=== PATIENT | female | born 1960 | race Caucasian/White ===

== ENCOUNTER 2020-10-18 11:27 | Emergency (ER) | payer OTHER, MEDICAID, SELFPAY ==
[2020-10-18] VITALS (12 sets, daily range): BP systolic 154–189; BP diastolic 72–115; PULSE 83–100; RESP 10–24; TEMP 36.5; O2SAT 94–99
--- NOTE | 2020-10-18 11:33 | DI.RAD.S_ITS ---
PROCEDURE: XR CHEST 1V INDICATIONS: chest pain TECHNIQUE: One view of the chest was acquired. COMPARISON: None. FINDINGS: Surgical changes and devices: None. Lungs and pleura: Lungs are clear. No pleural effusions or pneumothorax. Mediastinum: Mediastinal contours appear normal. Heart size is normal. Bones and chest wall: No suspicious bony lesions. Overlying soft tissues appear unremarkable. IMPRESSION: No acute cardiopulmonary pathology. Dictated by: Pete Partida M.D. on 10/18/2020 at 11:51 Approved by: Pete Partida M.D. on 10/18/2020 at 11:51
[2020-10-18 12:10] LABS: COVID19 -Nasal RAPID Negative (Negative)
--- NOTE | 2020-10-18 12:14 | ED.WEAKNESS ---
HPI - Weakness <Emanuel Morrow PA-C - Last Filed: 10/18/20 16:54> General Chief complaint: Weakness Stated complaint: generalized weakness x 3 months, no new sx Time Seen by Provider: 10/18/20 12:08 Source: patient Mode of arrival: Ambulatory Limitations: no limitations History of Present Illness HPI Narrative: Mariana presents today with chief complaint of weakness that has been going on for about 3 months. She reports occasionally that she has neck swelling but denies any swelling at this time. She is currently being evaluated for sleep apnea through her primary care provider. She reports that yesterday evening she had an episode of palpitations, left neck pain and left upper arm tingling that lasted for few minutes and then went away. She denies any significant chest pain, shortness of breath, exertional symptoms, fever, cough, sore throat or any other acute concerns or complaints at this time. She has not taken her antihypertensives yet today. Related Data Home Medications Medication Instructions Recorded Confirmed ASCORBIC ACID (#VITAMIN C) 500 mg PO QDAY #0 10/26/10 CALCIUM CARBONATE (#CALCIUM) 600 mg PO QDAY #0 10/26/10 CHOLECALCIFEROL (VITAMIN D) 2,000 iu PO QDAY #0 10/26/10 Fish Oil 1,000 mg PO QDAY #0 10/26/10 LACTOBACILLUS ACIDOPHILUS 1 cap PO QDAY #0 10/26/10 (#ACIDOPHILUS) MULTIVITAMIN (#MULTIPLE VITAMINS) 1 cap PO QDAY #0 10/26/10 diazepam 5 mg tablet 10 mg PO PRN #0 10/26/10 [5hTP] #0 02/08/16 [L/theanine] #0 02/08/16 levothyroxine 150 mcg tablet 1 tab PO QDAY #0 02/08/16 mupirocin 2 % topical ointment #0 02/08/16 Previous Rx's Medication Instructions Recorded clindamycin phosphate 1 % topical 1 % TOPICAL BID #30 gm 04/11/16 gel omeprazole 20 mg tablet,delayed 20 mg PO QDAY #30 tab 06/13/16 release hydrochlorothiazide 25 mg tablet 25 mg PO QDAY #90 tab 08/06/16 losartan 50 mg tablet (Cozaar) 1 tab PO QDAY #30 tab 09/04/16 Allergies Allergy/AdvReac Type Severity Reaction Status Date / Time Sulfa (Sulfonamide Allergy Unknown Verified 10/18/20 11:33 Antibiotics) [SULFA (SULFONAMIDE ANTIBIOTICS)] Review of Systems <Emanuel Morrow PA-C - Last Filed: 10/18/20 16:54> Review of Systems Narrative: As per HPI Patient History <Emanuel Morrow PA-C - Last Filed: 10/18/20 16:54> Surgical History (Updated 07/01/17 @ 05:56 by Conversion Provider) Status post delivery Status post delivery Status post parathyroidectomy Family History (Updated 05/13/16 @ 00:00 by Conversion Provider) Father Age: 85 Heart disease Hypertension Mother Diabetes mellitus Mental health disorder Sister Age: 72 Mental health disorder Skin cancer Sister Age: 68 Obesity Hypertension Hyperlipidemia Mental health disorder Stroke Social History Smoking Status: Former smoker Smoking Status: Former smoker alcohol intake frequency: 0-2 drinks per day Substance Use Type: does not use Exam <Emanuel Morrow PA-C - Last Filed: 10/18/20 16:54> Narrative Exam Narrative: Const General: cooperative, healthy appearing, comfortable and no acute distress Nutritional Appearance: Elevated BMI and well nourished Orientation: alert and oriented x3 HENMT Head: normal to inspection and normocephalic Ears: hearing grossly normal bilaterally, external ears normal, TM's normal bilaterally, EAC's normal, mastoids normal and no periauricular adenopathy Nose: external nose normal, nares normal and no nasal discharge Face and sinus: normal facial exam, sinuses nontender and face symmetric Mouth: oral mucosae normal, lip normal, tongue normal and moist mucous membranes Teeth and gingiva: dentition normal and gingiva normal Throat: posterior oropharynx normal, uvula midline, no postnasal drainage and no uvular edema Eyes periorbital findings normal, eyelids normal, conjunctivae normal Neck: normal visual inspection, full ROM, no lymphadenopathy, no meningeal signs and supple Resp normal respiratory effort, able to speak in complete sentences, not labored and no respiratory distress, clear to auscultation bilaterally, no crackles, no rales and no wheezes Cardio regular rate regular rhythm Heart Sounds: no gallops, no murmurs and no rubs Extrem normal to inspection, no pedal edema and no calf tenderness Neuro Alert and Oriented x3, normal gait, moves all extremities. Initial Vital Signs Initial Vital Signs: Vital Signs Pulse Rate 94 H 08/18/21 11:25 Respiratory Rate 22 10/18/20 11:25 Blood Pressure 174/96 H 10/18/20 11:25 Pulse Oximetry 97 10/18/20 11:25 <Hay Sharma DO - Last Filed: 10/18/20 17:31> Initial Vital Signs Initial Vital Signs: Vital Signs Pulse Rate 94 H 10/18/20 11:25 Respiratory Rate 22 10/18/20 11:25 Blood Pressure 174/96 H 10/18/20 11:25 Pulse Oximetry 97 10/18/20 11:25 Course <Emanuel Morrow PA-C - Last Filed: 10/18/20 16:54> Orders Ordered: ED Orders 10/18/20 11:33 XR chest 1V Stat EKG-12 Lead Stat 10/18/20 11:36 COVID19 -Nasal swab/Pre-Proc Stat 10/18/20 12:25 Complete Blood Count AUTO DIFF Stat Comprehensive Metabolic Panel Stat Lipase Stat Magnesium Stat Thyroid Stimulating Hormone Stat Troponin & CK Cardiac Panel Stat Discontinued Medications Al Hydrox/Mg Hydrox/Simethicone (Mag Hydrox/Alum/Simeth 30 Ml Udc) 30 ml PO NOW ONE Stop: 10/18/20 13:22 Last Admin: 10/18/20 13:25 Dose: 30 ml Documented by: DEVEN Vital Signs Vital signs: Vital Signs - 8 hr 10/18/20 11:25 10/18/20 11:28 10/18/20 11:30 Temperature 97.7 F Pulse Rate 94 H 95 H 94 H Respiratory Rate 22 14 18 Blood Pressure 174/96 H 179/101 H 162/91 H Pulse Oximetry 97 99 96 10/18/20 12:00 10/18/20 12:01 10/18/20 12:34 Temperature Pulse Rate 92 H 91 H 89 Respiratory Rate 14 18 Blood Pressure 156/72 H Pulse Oximetry 94 95 96 10/18/20 12:35 10/18/20 12:46 10/18/20 13:00 Temperature Pulse Rate 100 H 92 H 90 Respiratory Rate 21 24 15 Blood Pressure 189/115 H 172/103 H 157/95 H Pulse Oximetry 96 96 96 10/18/20 13:30 10/18/20 13:31 10/18/20 14:00 Temperature Pulse Rate 91 H 92 H 83 Respiratory Rate 13 17 10 L Blood Pressure 154/81 H 156/91 H Pulse Oximetry <Hay Sharma DO - Last Filed: 10/18/20 17:31> Orders Ordered: ED Orders 10/18/20 11:33 XR chest 1V Stat EKG-12 Lead Stat 10/18/20 11:36 COVID19 -Nasal swab/Pre-Proc Stat 10/18/20 12:25 Complete Blood Count AUTO DIFF Stat Comprehensive Metabolic Panel Stat Lipase Stat Magnesium Stat Thyroid Stimulating Hormone Stat Troponin & CK Cardiac Panel Stat Discontinued Medications Al Hydrox/Mg Hydrox/Simethicone (Mag Hydrox/Alum/Simeth 30 Ml Udc) 30 ml PO NOW ONE Stop: 10/18/20 13:22 Last Admin: 10/18/20 13:25 Dose: 30 ml Documented by: DEVEN Vital Signs Vital signs: Vital Signs - 8 hr 10/18/20 11:25 10/18/20 11:28 10/18/20 11:30 Temperature 97.7 F Pulse Rate 94 H 95 H 94 H Respiratory Rate 22 14 18 Blood Pressure 174/96 H 179/101 H 162/91 H Pulse Oximetry 97 99 96 10/18/20 12:00 10/18/20 12:01 10/18/20 12:34 Temperature Pulse Rate 92 H 91 H 89 Respiratory Rate 14 18 Blood Pressure 156/72 H Pulse Oximetry 94 95 96 10/18/20 12:35 10/18/20 12:46 10/18/20 13:00 Temperature Pulse Rate 100 H 92 H 90 Respiratory Rate 21 24 15 Blood Pressure 189/115 H 172/103 H 157/95 H Pulse Oximetry 96 96 96 10/18/20 13:30 10/18/20 13:31 10/18/20 14:00 Temperature Pulse Rate 91 H 92 H 83 Respiratory Rate 13 17 10 L Blood Pressure 154/81 H 156/91 H Pulse Oximetry MDM - Weakness <Emanuel Morrow PA-C - Last Filed: 10/18/20 16:54> Lab Data Result diagrams: 10/18/20 12:25 10/18/20 12:25 Labs: Lab Results 10/18/20 10/18/20 10/18/20 Range/Units 11:36 12:25 12:25 WBC 11.2 H (4.5-11.0) X10^3/uL RBC 4.49 (4.0-5.2) X10^6/uL Hgb 13.4 (12.0-16.0) g/dL Hct 39.8 (36-46) % MCV 88.8 (80-100) fL MCH 29.8 (26-34) PG MCHC 33.5 (30-36) % RDW 13.3 (11.6-14.8) % Plt Count 229 (150-400) X10^3/uL Neut % (Auto) 72.8 (50-75) % Lymph % (Auto) 19.4 L (25-40) % Sterling % (Auto) 6.3 (3-14) % Eos % (Auto) 0.6 L (2-4) % Baso % (Auto) 0.9 (0-2) % Neut # (Auto) 8100 H (5052-5459) /uL Lymph # (Auto) 2200 (3969-5067) /uL Sterling # (Auto) 700 (0-900) /uL Eos # (Auto) 100 (0-450) /uL Baso # (Auto) 100 (0-100) /uL Sodium 141 (137-145) mmol/L Potassium 4.3 (3.4-5.1) mmol/L Chloride 104 (98-107) mmol/L Carbon Dioxide 32 (22-32) mmol/L BUN 14 (7-17) mg/dL Creatinine 0.74 (0.52-1.04) mg/dL Estimated GFR > 60.0 (>60) mL/min BUN/Creatinine Ratio 18.9 (6-22) Glucose 122 H (80-110) mg/dL Calcium 10.0 (8.4-10.2) mg/dL Magnesium 1.9 (1.6-2.3) mg/dL Total Bilirubin 0.5 (0.2-1.3) mg/dL AST 38 H (14-36) IU/L ALT 30 (<35) IU/L Alkaline Phosphatase 125 (38-126) U/L Total Creatine Kinase 31 (30-135) U/L CK-MB (CK-2) TNP CK-MB (CK-2) Rel Index TNP Troponin I < 0.012 (0.01-0.034) ng/mL Total Protein 7.5 (6.3-8.2) g/dL Albumin 4.3 (3.5-5.0) g/dL Globulin 3.2 (1.7-4.1) g/dL Albumin/Globulin Ratio 1.3 (1.0-2.8) Lipase 126 (23-300) U/L TSH (0.47-4.68) uIU/mL SARS-CoV-2 (PCR) Negative (Negative) 10/18/20 Range/Units 12:25 WBC (4.5-11.0) X10^3/uL RBC (4.0-5.2) X10^6/uL Hgb (12.0-16.0) g/dL Hct (36-46) % MCV (80-100) fL MCH (26-34) PG MCHC (30-36) % RDW (11.6-14.8) % Plt Count (150-400) X10^3/uL Neut % (Auto) (50-75) % Lymph % (Auto) (25-40) % Sterling % (Auto) (3-14) % Eos % (Auto) (2-4) % Baso % (Auto) (0-2) % Neut # (Auto) (5450-4833) /uL Lymph # (Auto) (2399-5807) /uL Sterling # (Auto) (0-900) /uL Eos # (Auto) (0-450) /uL Baso # (Auto) (0-100) /uL Sodium (137-145) mmol/L Potassium (3.4-5.1) mmol/L Chloride (98-107) mmol/L Carbon Dioxide (22-32) mmol/L BUN (7-17) mg/dL Creatinine (0.52-1.04) mg/dL Estimated GFR (>60) mL/min BUN/Creatinine Ratio (6-22) Glucose (80-110) mg/dL Calcium (8.4-10.2) mg/dL Magnesium (1.6-2.3) mg/dL Total Bilirubin (0.2-1.3) mg/dL AST (14-36) IU/L ALT (<35) IU/L Alkaline Phosphatase (38-126) U/L Total Creatine Kinase (30-135) U/L CK-MB (CK-2) CK-MB (CK-2) Rel Index Troponin I (0.01-0.034) ng/mL Total Protein (6.3-8.2) g/dL Albumin (3.5-5.0) g/dL Globulin (1.7-4.1) g/dL Albumin/Globulin Ratio (1.0-2.8) Lipase (23-300) U/L TSH 1.20 (0.47-4.68) uIU/mL SARS-CoV-2 (PCR) (Negative) Urine Dip Bedside Urine Glucose Negative Bedside Urine Bilirubin - Negative Bedside Urine Ketone - Negative Urine Specific Meadow 1.015 Bedside Urine Occult Blood - Negative Bedside Urine pH 7 Bedside Urine Protein - Negative Bedside Urine Urobilinogen - Negative Bedside Urine Nitrite - Negative Bedside Urine Leukocytes - Negative Esterase MDM Narrative Medical decision making narrative: Differential diagnosis includes hypothyroidism, acute coronary syndrome, electrolyte abnormalities, acute pharyngitis. Patient is well-appearing at this time and has a reassuring examination. Symptoms have been gone going for the last couple months. EKG as well as cardiac enzymes are reassuring. She does not have any significant exertional symptoms and specifically denies any chest pain. We will discharge home at this time and have her follow-up with her primary care provider. ER return precautions were discussed with the patient. Patient verbalizes understanding and agrees to plan and has no further concerns at this time. Thank you A [id number] system was used with the dictation of this note. Please disregard any spelling or grammatical errors. <Hay Sharma, DO - Last Filed: 10/18/20 17:31> Lab Data Labs: Lab Results 10/18/20 10/18/20 10/18/20 Range/Units 11:36 12:25 12:25 WBC 11.2 H (4.5-11.0) X10^3/uL RBC 4.49 (4.0-5.2) X10^6/uL Hgb 13.4 (12.0-16.0) g/dL Hct 39.8 (36-46) % MCV 88.8 (80-100) fL MCH 29.8 (26-34) PG MCHC 33.5 (30-36) % RDW 13.3 (11.6-14.8) % Plt Count 229 (150-400) X10^3/uL Neut % (Auto) 72.8 (50-75) % Lymph % (Auto) 19.4 L (25-40) % Sterling % (Auto) 6.3 (3-14) % Eos % (Auto) 0.6 L (2-4) % Baso % (Auto) 0.9 (0-2) % Neut # (Auto) 8100 H (5760-3857) /uL Lymph # (Auto) 2200 (2259-3218) /uL Sterling # (Auto) 700 (0-900) /uL Eos # (Auto) 100 (0-450) /uL Baso # (Auto) 100 (0-100) /uL Sodium 141 (137-145) mmol/L Potassium 4.3 (3.4-5.1) mmol/L Chloride 104 (98-107) mmol/L Carbon Dioxide 32 (22-32) mmol/L BUN 14 (7-17) mg/dL Creatinine 0.74 (0.52-1.04) mg/dL Estimated GFR > 60.0 (>60) mL/min BUN/Creatinine Ratio 18.9 (6-22) Glucose 122 H (80-110) mg/dL Calcium 10.0 (8.4-10.2) mg/dL Magnesium 1.9 (1.6-2.3) mg/dL Total Bilirubin 0.5 (0.2-1.3) mg/dL AST 38 H (14-36) IU/L ALT 30 (<35) IU/L Alkaline Phosphatase 125 (38-126) U/L Total Creatine Kinase 31 (30-135) U/L CK-MB (CK-2) TNP CK-MB (CK-2) Rel Index TNP Troponin I < 0.012 (0.01-0.034) ng/mL Total Protein 7.5 (6.3-8.2) g/dL Albumin 4.3 (3.5-5.0) g/dL Globulin 3.2 (1.7-4.1) g/dL Albumin/Globulin Ratio 1.3 (1.0-2.8) Lipase 126 (23-300) U/L TSH (0.47-4.68) uIU/mL SARS-CoV-2 (PCR) Negative (Negative) 10/18/20 Range/Units 12:25 WBC (4.5-11.0) X10^3/uL RBC (4.0-5.2) X10^6/uL Hgb (12.0-16.0) g/dL Hct (36-46) % MCV (80-100) fL MCH (26-34) PG MCHC (30-36) % RDW (11.6-14.8) % Plt Count (150-400) X10^3/uL Neut % (Auto) (50-75) % Lymph % (Auto) (25-40) % Sterling % (Auto) (3-14) % Eos % (Auto) (2-4) % Baso % (Auto) (0-2) % Neut # (Auto) (1833-3106) /uL Lymph # (Auto) (4721-7386) /uL Sterling # (Auto) (0-900) /uL Eos # (Auto) (0-450) /uL Baso # (Auto) (0-100) /uL Sodium (137-145) mmol/L Potassium (3.4-5.1) mmol/L Chloride (98-107) mmol/L Carbon Dioxide (22-32) mmol/L BUN (7-17) mg/dL Creatinine (0.52-1.04) mg/dL Estimated GFR (>60) mL/min BUN/Creatinine Ratio (6-22) Glucose (80-110) mg/dL Calcium (8.4-10.2) mg/dL Magnesium (1.6-2.3) mg/dL Total Bilirubin (0.2-1.3) mg/dL AST (14-36) IU/L ALT (<35) IU/L Alkaline Phosphatase (38-126) U/L Total Creatine Kinase (30-135) U/L CK-MB (CK-2) CK-MB (CK-2) Rel Index Troponin I (0.01-0.034) ng/mL Total Protein (6.3-8.2) g/dL Albumin (3.5-5.0) g/dL Globulin (1.7-4.1) g/dL Albumin/Globulin Ratio (1.0-2.8) Lipase (23-300) U/L TSH 1.20 (0.47-4.68) uIU/mL SARS-CoV-2 (PCR) (Negative) Urine Dip Bedside Urine Glucose Negative Bedside Urine Bilirubin - Negative Bedside Urine Ketone - Negative Urine Specific [place]ow 1.015 Bedside Urine Occult Blood - Negative Bedside Urine pH 7 Bedside Urine Protein - Negative Bedside Urine Urobilinogen - Negative Bedside Urine Nitrite - Negative Bedside Urine Leukocytes - Negative Esterase Discharge Plan Departure Patient Disposition: Home Clinical Impression: Weakness Activity Restrictions/Additional Instructions: It was very nice to meet you this afternoon. Your evaluation today has been reassuring. Please follow-up with your primary care provider for continued evaluation if you have continue symptoms. ER return precautions include difficulty swallowing, difficulty breathing, chest pain or any other acute concerns or complaints. Thank you Emanuel Morrow PAC Prescriptions: No Action ASCORBIC ACID (#VITAMIN C) 500 mg PO QDAY Qty: 0 RF: 0 CHOLECALCIFEROL (VITAMIN D) 2,000 iu PO QDAY Qty: 0 RF: 0 MULTIVITAMIN (#MULTIPLE VITAMINS) 1 cap PO QDAY Qty: 0 RF: 0 CALCIUM CARBONATE (#CALCIUM) 600 mg PO QDAY Qty: 0 RF: 0 Fish Oil 1,000 mg PO QDAY Qty: 0 RF: 0 LACTOBACILLUS ACIDOPHILUS (#ACIDOPHILUS) 1 cap PO QDAY Qty: 0 RF: 0 diazepam 5 MG tablet 10 mg PO PRN Qty: 0 RF: 0 levothyroxine 150 MCG tablet 1 tab PO QDAY Qty: 0 RF: 0 [5hTP] Qty: 0 RF: 0 [L/theanine] Qty: 0 RF: 0 mupirocin 2 % ointment Qty: 0 RF: 0 clindamycin phosphate 1 % gel 1 % Topical BID Qty: 30 RF: 5 omeprazole 20 MG tablet,delayed release (DR/EC) 20 mg PO QDAY Qty: 30 RF: 2 hydrochlorothiazide 25 MG tablet 25 mg PO QDAY Qty: 90 RF: 0 losartan [Cozaar] 50 MG tablet 1 tab PO QDAY Qty: 30 RF: 0 Referrals: Dakota Perez MD [Primary Care Provider] - <Hay Sharma DO - Last Filed: 10/18/20 17:31> Cosign ED Attending Cosignature Attestation: Dr Sharma Co-Sign Statement: I was available for consultation during this patient's emergency department visit. This chart is signed by myself for administrative purposes only. I did not have direct contact with this patient during this visit. They were seen independently by the APC.
[2020-10-18 12:33] LABS: Add Manual Diff / Slide Review NO; Basophils Absolute Auto 100 /uL (0-100); Basophils Percent Auto 0.9 % (0-2); Eosinophils Absolute Auto 100 /uL (0-450); Eosinophils Percent Auto 0.6 % (2-4); Hematocrit 39.8 % (36-46); Hemoglobin 13.4 g/dL (12.0-16.0); Lymphocytes Absolute Auto 2200 /uL (1100-4500); Lymphocytes Percent Auto 19.4 % (25-40); Mean Corpuscular HGB Conc 33.5 % (30-36); Mean Corpuscular Hemoglobin 29.8 PG (26-34); Mean Corpuscular Volume 88.8 fL (80-100); Monocytes Absolute Auto 700 /uL (0-900); Monocytes Percent Auto 6.3 % (3-14); Neutrophils Absolute Auto 8100 /uL (1500-7000); Neutrophils Percent Auto 72.8 % (50-75); Platelet Count 229 X10^3/uL (150-400); Red Blood Cell Count 4.49 X10^6/uL (4.0-5.2); Red Cell Distribution Width 13.3 % (11.6-14.8); White Blood Cell Count 11.2 X10^3/uL (4.5-11.0)
[2020-10-18 12:44] LABS: Alanine Aminotransferase 30 IU/L (<35); Albumin 4.3 g/dL (3.5-5.0); Albumin Globulin Ratio 1.3 (1.0-2.8); Alkaline Phosphatase 125 U/L (38-126); Aspartate Aminotransferase 38 IU/L (14-36); BUN Creatinine Ratio 18.9 (6-22); Bilirubin Total 0.5 mg/dL (0.2-1.3); Blood Urea Nitrogen 14 mg/dL (7-17); Carbon Dioxide 32 mmol/L (22-32); Chloride 104 mmol/L (98-107); Creatine Kinase 31 U/L (30-135); Estimated Glomerular Filt Rate > 60.0 mL/min (>60); Globulin 3.2 g/dL (1.7-4.1); Glucose 122 mg/dL (80-110); HEMOLYSIS < 15 (0-50); Lipase 126 U/L (23-300); Magnesium 1.9 mg/dL (1.6-2.3); Potassium 4.3 mmol/L (3.4-5.1); Sodium 141 mmol/L (137-145); Total Protein 7.5 g/dL (6.3-8.2)
[2020-10-18 12:55] LABS: Troponin I < 0.012 ng/mL (0.01-0.034)
[2020-10-18] MEDS: MAG HYDROX/ALUM/SIMETH 30 ML UDC PO (13:25)
== END 2020-10-18 14:29 | disposition home or self-care (01) ==
PROVIDERS: Emergency Medicine; Emergency Provider Physician Assistant; Family Provider Family Medicine; PCP Family Medicine
DX: R53.1 Weakness (principal); R07.9 Chest pain, unspecified; Z20.822 Contact with and (suspected) exposure to COVID-19
CPT/HCPCS: 36415; 71045; 80053; 81003; 82550; 83690; 83735; 84443; 84484; 85025; 87635; 93005; 93010; 99284; C9803

== ENCOUNTER → 2020-10-30 11:15 | Outpatient (CLI) | payer OTHER, MEDICAID, SELFPAY ==
--- NOTE | 2020-10-30 | DI.CT.S_ITS ---
PROCEDURE: CT SOFT TISSUE NECK W CON INDICATIONS: Hypertrophy of salivary gland. Neck fullness with swallowing difficulty. Assess for adenopathy or abnormalities with salivary glands. TECHNIQUE: After the administration of intravenous contrast, 3.0 mm axial sections acquired from the sella to the aortic arch. Additional oblique axial 3.0 mm sections acquired through the pharynx. 3 mm thick coronal and sagittal reformats were generated. For radiation dose reduction, the following was used: automated exposure control. COMPARISON: [facility], CR, XR CHEST 1V, 10/18/2020, 11:36. FINDINGS: Image quality: Excellent. Lymph nodes: No enlarged lymph nodes seen throughout the neck. Vessels: Visualized vasculature appears patent. Neck spaces: The oropharynx, nasopharynx, and pharynx demonstrate no mucosal lesions. The vocal cords, false vocal cords, pyriform sinuses, epiglottis, vallecula, and tongue base all appear normal. Extramucosal spaces appear unremarkable. Glands: The parotid glands demonstrate fatty replacement, without significant focal abnormality. No matt masses can be seen. The submandibular glands appear normal. Thyroid gland is unremarkable. There is a postoperative clips seen just anterior to the right thyroid, as on series 2, image 53. Miscellaneous: Visualized brain and orbits appear normal. Lung apices appear clear. Superficial soft tissues appear normal. Bones: No suspicious bony lesions. [id number] lower cervical spine degenerative changes are seen. Moderate mucosal thickening is seen within the maxillary sinuses. There is frothy material seen within the left maxillary sinus. No significant abnormal mucosal thickening can be seen elsewhere within the paranasal sinuses. No abnormal fluid is seen within the mastoid air cells. There is [id number] rightward nasal septal deviation. IMPRESSION: No significant abnormality of the salivary glands can be seen. No enlarged lymph nodes can be seen. No mucosal masses are detected. No significant hypertrophy of the tonsils or adenoids can be seen. Focal maxillary sinus disease can be seen. Mild to moderate rightward nasal septal deviation can be seen. Dictated by: Atilio Corea M.D. on 10/30/2020 at 13:39 Approved by: Atilio Corea M.D. on 10/30/2020 at 13:42
== END ==
PROVIDERS: Family Provider Family Medicine; PCP Internal Medicine; Referring Provider Internal Medicine; Visit Provider Internal Medicine
DX: K11.1 Hypertrophy of salivary gland (principal); R13.10 Dysphagia, unspecified; J32.0 Chronic maxillary sinusitis; J34.2 Deviated nasal septum; M47.812 Spondylosis without myelopathy or radiculopathy, cervical region
CPT/HCPCS: 70491; Q9967